=== PATIENT | female | born 2000 | race African-American/Black ===

== ENCOUNTER 2019-09-14 21:19 | Emergency (ER) | payer OTHER ==
[~2019-09-14] VITALS: Ht 167.6 cm; Wt 67.1 kg
[2019-09-14] MEDS ORDERED: ALLERGY RELIEF10 M3 (21:45)
[2019-09-14] MEDS ORDERED: ATIVAN0.5 M1 (21:45)
[2019-09-14] MEDS ORDERED: RESTORIL30 MG (21:45)
[2019-09-14] MEDS ORDERED: RISPERDAL2 MG (21:46)
[2019-09-14] MEDS ORDERED: NABUMETONE750 MG (21:46)
[2019-09-14] MEDS ORDERED: BANOPHEN50 MG (21:46)
== END 2019-09-14 22:53 | disposition home or self-care (01) ==
LOC: ER 21:19
DX: R07.89 Other chest pain (principal); R42 Dizziness and giddiness; T42.4X5A Adverse effect of benzodiazepines, initial encounter; Y92.89 Other specified places as the place of occurrence of the external cause